=== PATIENT | male | born 1980 | race Caucasian/White ===

== ENCOUNTER 2020-09-16 16:13 | Emergency (ER) | payer OTHER ==
[~2020-09-16 16:13] MED LIST: BACTRIM DS TAB1 EACH PO
[2020-09-16 17:45] LABS: BASOPHIL 0.7 % (0-2); EOSINOPHIL 0.4 % (0-5); HGB 16.6 g/dl (13.2-18.0); LYMPHOCYTE 24.1 % (15-48); MCH 28.8 pg (25.0-31.0); MCHC 33.9 g/dL (32.0-36.0); MCV 85.1 fL (78.0-100.0); MONOCYTE 6.3 % (0-12); MPV 9.9 fL (6.0-9.5); NEUTROPHIL 68.3 % (41-80); NRBC 0; PLT 292 K/uL (150-400); RBC 5.76 M/uL (4.70-6.00); RDW 13.2 % (11.5-14.0); WBC 10.4 K/uL (4.0-10.5)
[2020-09-16 17:45] LABS: BILIRUBIN 1+ mg/dL (NEGATIVE); BLOOD 3+ Ery/uL (NEGATIVE); CLARITY CLEAR (CLEAR); COLOR YELLOW (YELLOW); GLUCOSE (U) NORMAL (NORMAL); LEUKOCYTES NEGATIVE Leu/uL (NEGATIVE); NITRITE NEGATIVE (NEGATIVE); PROTEIN 2+ mg/dL (NEGATIVE); SPECIFIC GRAVITY >=1.030 (1.001-1.030); pH 5.5 (5.0-9.0)
[2020-09-16 17:49] LABS: ALBUMIN 5.3 g/dL (3.4-5.0); BILIRUBIN - TOTAL 2.4 mg/dL (0.2-1.0); BUN/CREAT RATIO (CALC) 14.9 RATIO; CREATININE 1.14 mg/dL (0.67-1.17); GLOBULIN (CALCULATION) 3.5 g/dL; POTASSIUM 3.6 mmol/L (3.5-5.1); TOTAL PROTEIN 8.8 g/dL (6.4-8.2)
[2020-09-16 18:04] LABS: BACTERIA 1+; CALCIUM OXALATE CRYSTALS TRACE; MUCOUS LARGE; SQUAMOUS EPITHELIAL CELLS RARE
[2020-09-16] MEDS ORDERED: NORCO 5-325 TA1 EACH PO (18:58)
[2020-09-16] MEDS ORDERED: ZOFRAN4 M1 PO (18:58)
[2020-09-16] MEDS ORDERED: FLOMAX 0.4 MG0.4 MG PO (18:58)
[2020-09-16] MEDS ORDERED: NAPROXEN500 MG PO (18:58)
== END 2020-09-16 20:36 | disposition home or self-care (01) ==
LOC: FER 16:13
PROVIDERS: Emergency Medicine
DX: N13.2 Hydronephrosis with renal and ureteral calculous obstruction (principal)
CPT/HCPCS: 36415; 80053; 81001; 85025; J1170; J1885; J2405; J7030

== ENCOUNTER 2021-06-25 12:47 | Emergency (ER) | payer OTHER ==
[~2021-06-25 12:47] MED LIST changes: +FLOMAX 0.4 MG0.4 MG PO; +NAPROXEN500 MG PO; +NORCO 5-325 TA1 EACH PO; +ZOFRAN4 M1 PO
[2021-06-25] MEDS ORDERED: BACLOFEN 10MG T10 MG PO (17:15)
[2021-06-25] MEDS ORDERED: NAPROXEN500 MG PO (17:15)
== END 2021-06-25 17:27 | disposition home or self-care (01) ==
LOC: FER 12:47
DX: M25.511 Pain in right shoulder (principal); Z87.891 Personal history of nicotine dependence; X50.9XXA Other and unspecified overexertion or strenuous movements or postures, initial encounter; Y92.89 Other specified places as the place of occurrence of the external cause; Y99.0 Civilian activity done for income or pay; Z28.310 Unvaccinated for COVID-19
CPT/HCPCS: 72125; 72128; 73030; 96372; J1100; J1885